=== PATIENT | female | born 1975 | race Caucasian/White ===

== ENCOUNTER 2018-07-15 17:20 | Emergency (ER) | payer OTHER, MEDICAID ==
[~2018-07-15] VITALS: Ht 157.5 cm; Wt 98.5 kg
[2018-07-15 17:24] VITALS: BP 117/70
--- NOTE | 2018-07-15 18:55 | NUR ---
PT AMBULATES TO BED 8
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
--- NOTE | 2018-07-15 21:06 | NUR ---
Patient discharged with v/s stable. Written and verbal after care instructions given and explained. Patient alert, oriented and verbalized understanding of instructions. Ambulatory with steady gait. All questions addressed prior to discharge. ID band removed. Patient advised to follow up with PMD. Rx of Ibuprofen for pain given. Patient educated on indication of medication including possible reaction and side effects. Opportunity to ask questions provided and answered.
[2018-07-15 21:08] VITALS: BP 116/62
== END 2018-07-15 21:06 | disposition home or self-care (01) ==
LOC: MED 17:20
DX: S96.911A Strain of unspecified muscle and tendon at ankle and foot level, right foot, initial encounter (principal); E11.9 Type 2 diabetes mellitus without complications; I10 Essential (primary) hypertension; F20.9 Schizophrenia, unspecified; F31.9 Bipolar disorder, unspecified; X58.XXXA Exposure to other specified factors, initial encounter; Y93.89 Activity, other specified; Y92.89 Other specified places as the place of occurrence of the external cause; Y99.8 Other external cause status
CPT/HCPCS: 73660; 99283

== ENCOUNTER 2018-12-09 15:51 | Emergency (ER) | payer OTHER, MEDICAID ==
[~2018-12-09] VITALS: Ht 160 cm; Wt 100.4 kg
[2018-12-09 16:19] VITALS: BP 123/81
[2018-12-09] MEDS ORDERED: HAL5 PO (16:33)
[2018-12-09] MEDS ORDERED: [UNRECOGNIZED DRUG - CODE] PO (16:33)
[2018-12-09] MEDS ORDERED: DIVA500T47 PO (16:33)
[2018-12-09] MEDS ORDERED: HYDR-9 PO (16:33)
[2018-12-09] MEDS ORDERED: BENZ2TAB27 PO (16:33)
[2018-12-09] MEDS ORDERED: METF1000 PO (16:33)
[2018-12-09] MEDS ORDERED: DOCU-299 PO (16:33)
[2018-12-09] MEDS ORDERED: TRAZ-343 PO (16:33)
--- NOTE | 2018-12-09 16:47 | NUR ---
PT BIB [facility] FROM [facility] C/O SORE THROAT, RUNNY NOSE, PRODUCTIVE COUGH WITH GAMING SPUTUM, ALL OVER ABD PAIN X 2 DAYS. DENIES N/V/D. NO URINARY COMPLAINTS. LUNG SOUNDS CTAB. VSS. ER MD TO SEE PT. HX: SCHIZOPHRENIA, BIPOLAR, HTN, DIABETIC, FIBROCYSTIC DISEASE OF RIGHT BREAST, GERD, HYPONATREMIA, POLYDIPSIA, DYSLIPODEMIA, MODERATE INTELLECTUAL DISABILITIES. RX: REFER TO MED REC. BS: 121
[2018-12-09 17:39] VITALS: BP 123/81
--- NOTE | 2018-12-09 17:39 | NUR ---
Patient discharged with v/s stable. Written and verbal after care instructions given and explained. Patient alert, oriented and verbalized understanding of instructions. Ambulatory with steady gait. All questions addressed prior to discharge. ID band removed. Patient advised to follow up with PMD. Rx of KEFLEX/MOTRIN/PROMETHAZINE DM given. Patient educated on indication of medication including possible reaction and side effects. Opportunity to ask questions provided and answered.
== END 2018-12-09 17:39 | disposition home or self-care (01) ==
LOC: MED 15:51
DX: J06.9 Acute upper respiratory infection, unspecified (principal); N39.0 Urinary tract infection, site not specified; E11.9 Type 2 diabetes mellitus without complications; I10 Essential (primary) hypertension; F17.210 Nicotine dependence, cigarettes, uncomplicated; Z71.6 Tobacco abuse counseling; Z79.84 Long term (current) use of oral hypoglycemic drugs; Z79.899 Other long term (current) drug therapy
CPT/HCPCS: 71045; 99283